=== PATIENT | male | born 1980 | race Caucasian/White ===

== ENCOUNTER 2016-03-28 19:06 | Emergency (ER) | payer OTHER ==
[~2016-03-28] VITALS: Ht 170.2 cm; Wt 106.0 kg
[~2016-03-28 19:06] MED LIST: DOLU1TAB PO; MULT-506 PO; OMEG-27 PO; TEST5GEL TOP; TRV PO
[2016-03-28 19:09] VITALS: BP 162/101; PULSE 110; TEMP 36.8; O2SAT 98; Ht 170.2 cm; Wt 106.0 kg
[2016-03-28] MEDS ORDERED: SULF800T23 PO (19:28)
[2016-03-28] MEDS ORDERED: CEPHALEXIN MONOHYDRATE 250 MG CAP PO ONE (19:30)
[2016-03-28] MEDS ORDERED: CEPHALEXIN 500MG HOME PACK 1 EA BTL PO ONE (19:30)
--- NOTE | 2016-03-28 19:32 | EMERGENCY ROOM VISIT NOTE ---
History Report prepared by Cecile: Morris Peng Under the Supervision of: Dr. Leela Spivey M.D. First contact with patient: 19:14 Chief Complaint: WOUND INFECTION Stated Complaint: INFECTION ON CHIN Nursing Triage Summary: pt noticed a red spot on chin that got bigger over the past day, thinks it is infected, states started after he shaved History of Present Illness The patient is a 36 year old male who presents to the Emergency Room with complaints of a worsening wound infection on his chin starting yesterday. The patient states that he is currently in minimal discomfort. The patient states that he was shaving yesterday and it cut his chin. He states that it has gotten red, bigger, and now it hurts. The patient additionally states that he has a staph or MRSA infection on his forehead which is improving with antibiotics. The patient denies any fever. The patient additionally sates that he is HIV positive, and his CD4 levels are in the 600s. The patient states that he is putting bacitracin on his chin. Source of History: patient Onset: yesterday Position: other (chin) Symptom Intensity: minimal Quality: other (infection) Timing: worsening Associated Symptoms: No fevers Review of Systems See HPI for pertinent positives & negatives. A total of 6 systems reviewed and were otherwise negative. Past Medical & Surgical Social History Problems: (1) HIV (human immunodeficiency virus infection) Family History Diabetes mellitus Heart disease Hypertension Social History Smoking Status: Never Smoker Alcohol Use: none Drug Use: marijuana Marital Status: single Occupation Status: employed Current/Historical Medications Scheduled Cephalexin Monohydrate (Keflex), 1 CAP PO QID Dolutegravir Sodium (Tivicay), 50 MG PO AFTERNOON Emtricitabine/Temofovir (Truvada 200-300 mg), 1 TAB PO AFTERNOON Multivitamin (Multivitamin), 1 TAB PO QAM [place]-3 Fatty Acids (Fish Oil), 1 CAP PO QAM Sulfa/Trimethoprim (Bactrim Ds 800MG/160MG), 1 TAB PO BID Testosterone (Androgel Pump), 40.5 MG TOP QAM Allergies Coded Allergies: No Known Allergies (Unverified , 03/28/16) Physical Exam Vital Signs Date Time Temp Pulse Resp B/P Pulse Ox O2 Delivery O2 Flow Rate FiO2 03/28/16 19:09 36.8 110 18 162/101 98 Room Air Physical Exam Vital signs reviewed. General: Well-appearing male, in no significant distress. HEENT: Multiple facial lesions covered in bandages. Ulcerations with minimal discharge. Crusted abrasion over the chin. No erythema, swelling, or lymphangitic streaking. No palpable fluctuance. No scleral icterus, PERRLA, neck supple. Musculoskeletal: Atraumatic, no peripheral edema. Neurologic: Patient awake alert and oriented x 3 Skin: Warm, dry, no rash Medical Decision & Procedures Medications Administered Medications (Trade) Dose Ordered Sig/Judi Route Start Time Stop Time Status Last Admin Dose Admin Cephalexin Monohydrate (Keflex 500MG Home Pack) 1 homepack NOW ONCE PO 03/28/16 19:30 03/28/16 19:31 DC 03/28/16 19:43 1 HOMEPACK Cephalexin Monohydrate (Keflex Cap) 500 mg NOW ONCE PO 03/28/16 19:30 03/28/16 19:31 DC 03/28/16 19:42 500 MG ED Course 1913: Past medical records reviewed. The patient was evaluated in room D4. A complete history and physical examination was performed. 1930: Keflex Cap 500mg PO, Keflex 500mg 1 Home pack PO 1944: Upon reevaluation, the patient appeared to have improvement of his symptoms. I discussed findings with him. He verbalized agreement of the treatment plan. He was discharged home. Medical Decision Differential diagnosis: Etiologies such as cellulitis, abscess, MRSA infection, DVT, necrotizing fasciitis, dermatitis, drug eruption, as well as others were entertained. This patient was evaluated and appeared to be in no significant distress. His examination reveals several infectious areas to the face. He appears to have an impetigo to the chin. Patient is currently on Bactrim for chronic MRSA infection. Keflex 500 mg 4 times daily for 7 days was added. Patient was given his first dose in the emergency department and discharged with a home pack. He'll follow-up with his physician this week for reevaluation and return to the ER for worsening of symptoms or any medical concerns. Impression Primary Impression: Impetigo Additional Impression: History of MRSA infection Scribe Attestation The scribe's documentation has been prepared under my direction and personally reviewed by me in its entirety. I confirm that the note above accurately reflects all work, treatment, procedures, and medical decision making performed by me. Departure Information Dispostion Home / Self-Care Prescriptions Cephalexin Monohydrate (Keflex) 500 Mg Cap 1 CAP PO QID for 7 Days, #28 CAP Prov: Leela Spivey M.D. 03/28/16 Referrals RV. Mcclendon MD (PCP) Forms HOME CARE DOCUMENTATION FORM, IMPORTANT VISIT INFORMATION, WORK / SCHOOL INSTRUCTIONS Patient Instructions A Signature Page, My [facility] Additional Instructions Diagnosis: Impetigo, history of MRSA Continue Bactrim DS as prescribed. Add Keflex 500 mg 4 times daily for 7 days. Wash with warm soap and water. Dry with a clean towel and apply antibiotic ointment. Follow-up with your physician this week for reevaluation. Return to the ER for worsening of symptoms or any medical concerns.
[2016-03-28] MEDS ORDERED: CEPH500C PO (19:34)
== END 2016-03-28 19:41 | disposition home or self-care (01) ==
LOC: C.EDB 19:07 → C.EDD 19:41
DX: L01.00 Impetigo, unspecified (principal); Z86.14 Personal history of Methicillin resistant Staphylococcus aureus infection; B20 Human immunodeficiency virus [HIV] disease; Z83.3 Family history of diabetes mellitus; Z82.49 Family history of ischemic heart disease and other diseases of the circulatory system; Z79.899 Other long term (current) drug therapy

== ENCOUNTER → 2016-05-25 | Outpatient (CLI) | payer OTHER ==
[~2016-05-25] MED LIST changes: +SULF800T23 PO
[2016-05-25 11:26] LABS: BLOOD UREA NITROGEN 16 mg/dl (7-18); BUN/CREATININE RATIO 10.1 (10-20); CALCIUM 8.3 mg/dl (8.5-10.1); CARBON DIOXIDE 26 mmol/L (21-32); CHLORIDE 104 mmol/L (98-107); GLUCOSE 147 mg/dl (70-99); POTASSIUM 3.9 mmol/L (3.5-5.1); SODIUM 139 mmol/L (136-145)
== END | disposition home or self-care (01) ==
LOC: C.LAB1850 10:03
PROVIDERS: ATTEND Internal Medicine
DX: N28.9 Disorder of kidney and ureter, unspecified (principal)

== ENCOUNTER → 2016-06-09 | Outpatient (CLI) | payer OTHER ==
[2016-06-09 14:44] LABS: BASO % 0.2 %; BASO ABS # 0.01 K/uL (0-0.2); COMPLETE YES; EOS % 4.8 %; HEMATOCRIT 44.9 % (42-52); IG% 0.2 %; LYMPH % 39.7 %; LYMPH ABS # 2.42 K/uL (1.2-3.4); MEAN CELL VOLUME 90.2 fL (80-100); MEAN CORPUSCULAR HEMOGLOBIN 31.7 pg (25-34); MEAN CORPUSCULAR HGB CONC 35.2 g/dl (32-36); MEAN PLATELET VOLUME 9.7 fL (7.4-10.4); NEUT % 47.1 %; PLATELET COUNT 277 K/uL (130-400); RED BLOOD COUNT 4.98 M/uL (4.7-6.1); WHITE BLOOD COUNT 6.09 K/uL (4.8-10.8)
[2016-06-09 14:58] LABS: ALT/SGPT 36 U/L (12-78); BLOOD UREA NITROGEN 18 mg/dl (7-18); CALCIUM 8.6 mg/dl (8.5-10.1); CARBON DIOXIDE 27 mmol/L (21-32); CHLORIDE 108 mmol/L (98-107); CHOLESTEROL 179 mg/dl (0-200); GLUCOSE 83 mg/dl (70-99); POTASSIUM 3.9 mmol/L (3.5-5.1); SODIUM 143 mmol/L (136-145)
[2016-06-09 15:07] LABS: ALB/GLOB RATIO 0.9 (0.9-2); ALKALINE PHOSPHATASE 63 U/L (45-117); AST/SGOT 22 U/L (15-37); CHOLESTEROL/HDL RATIO 5.8; HDL CHOLESTEROL 31 mg/dl; LDL CHOLESTEROL CALCULATED 81 mg/dl; TRIGLYCERIDES 334 mg/dl (0-150); VERY LOW DENSITY LIPOPROT CALC 67 mg/dl
[2016-06-09 17:47] LABS: LYME DISEASE AB IGG NEG (NEG); LYME DISEASE AB IGM NEG (NEG)
== END | disposition home or self-care (01) ==
LOC: C.LAB1850 13:14
PROVIDERS: ATTEND Internal Medicine
DX: R53.83 Other fatigue (principal); E78.5 Hyperlipidemia, unspecified

== ENCOUNTER → 2016-08-24 | Outpatient (CLI) | payer OTHER ==
[2016-08-24 14:07] LABS: BLOOD UREA NITROGEN 14 mg/dl (7-18); BUN/CREATININE RATIO 8.4 (10-20); CARBON DIOXIDE 26 mmol/L (21-32); CHLORIDE 103 mmol/L (98-107); GLUCOSE 65 mg/dl (70-99); POTASSIUM 3.7 mmol/L (3.5-5.1); SODIUM 138 mmol/L (136-145)
[2016-08-24 14:33] LABS: HEPATITIS B AB POS
[2016-08-26 17:41] LABS: HSV1 AB IGM Negative (Negative); HSV2 AB IGM Negative (Negative); LSP % CELLS ANALYZED CD4 30 % (30-61); LSP ABSOLUTE CT CD4 773 cells/uL (490-1740); LSP LYMPHOCYTES ABSOLUTE 2615 cells/uL (850-3900)
== END | disposition home or self-care (01) ==
LOC: C.LAB1850 11:08
PROVIDERS: ATTEND Internal Medicine
DX: B20 Human immunodeficiency virus [HIV] disease (principal); N18.9 Chronic kidney disease, unspecified; Z11.3 Encounter for screening for infections with a predominantly sexual mode of transmission

== ENCOUNTER → 2016-09-16 | Outpatient (CLI) | payer OTHER ==
[2016-09-16 13:20] LABS: URINE APPEARANCE CLEAR (CLEAR); URINE BILIRUBIN NEG (NEG); URINE COLOR DK YELLOW; URINE NITRITE NEG (NEG); URINE PH 5.5 (4.5-7.5); URINE SPECIFIC GRAVITY 1.029 (1.000-1.030); UROBILINOGEN NEG (NEG)
[2016-09-16 13:21] LABS: MANUAL MICROSCOPIC REQUIRED? NO; REVIEW REQ? NO
[2016-09-16 13:34] LABS: BLOOD UREA NITROGEN 16 mg/dl (7-18); BUN/CREATININE RATIO 10.9 (10-20); CALCIUM 8.7 mg/dl (8.5-10.1); CARBON DIOXIDE 29 mmol/L (21-32); CHLORIDE 107 mmol/L (98-107); GLUCOSE 106 mg/dl (70-99); POTASSIUM 3.9 mmol/L (3.5-5.1); SODIUM 142 mmol/L (136-145)
[2016-09-16 13:56] LABS: URINE PROTIEN/CREAT RATIO 0.1 (0-0.2); URINE TOTAL PROTEIN 33.1 mg/dl (0-11.9)
== END | disposition home or self-care (01) ==
LOC: C.LAB1850 11:30
PROVIDERS: ATTEND Internal Medicine Nephrology
DX: N17.9 Acute kidney failure, unspecified (principal)

== ENCOUNTER 2016-10-22 14:19 | Emergency (ER) | payer OTHER ==
[~2016-10-22] VITALS: Ht 170.2 cm; Wt 104.7 kg
[2016-10-22 14:22] VITALS: BP 138/85; Ht 170.2 cm; Wt 104.7 kg
[2016-10-22] MEDS ORDERED: IBUPROFEN 600 MG TAB PO STA (14:32)
--- NOTE | 2016-10-22 14:47 | DIAGNOSTIC IMAGING REPORT ---
LEFT ANKLE MIN 3 VIEWS ROUTINE CLINICAL HISTORY: ankle injury trauma. Pain. COMPARISON: None. DISCUSSION: Soft tissue edema over the lateral malleolus. No evidence for acute bony pathology. Cortical margins are intact. IMPRESSION: Soft tissue edema. No acute bony abnormality. The above report was generated using voice recognition software. It may contain grammatical, syntax or spelling errors. Electronically signed by: Yamil Aleman M.D. 10/22/2016 2:46 PM Dictated Date/Time: 10/22/2016 2:45 PM
--- NOTE | 2016-10-22 15:06 | EMERGENCY ROOM VISIT NOTE ---
ED Visit Note First contact with patient: 14:29 CHIEF COMPLAINT: Left Ankle injury HISTORY OF PRESENT ILLNESS: This 36-year-old male patient sustained an injury to the left ankle with a twisting, inversion motion last evening when he stepped off a curb. Complains of swelling and pain. The patient is able to bear weight on the foot but with pain. Constant pain, moderate to severe, worse with movement, weight bearing, and the dependent position. No knee pain. He denies any prior ankle injury. He has not taken anything for pain. REVIEW OF SYSTEMS: 6 system review was performed and was negative unless stated otherwise in history of present illness. PMH: No prior significant ankle injury. HIV, Kidney stones, umbilical hernia surgery SOCIAL HISTORY: Patient lives with his parents. The patient denies any tobacco or alcohol use. PHYSICAL EXAM: Vital Signs: Were reviewed Reviewed Nurse's notes. GENERAL: 36- year-old male appears in no acute distress. MENTAL STATUS: Alert, oriented, and cooperative. LEFT ANKLE The ankle is swollen and tender over the lateral aspect but the skin is intact and there is no ligamentous instability. There is no deformity. The foot and toes are warm and well-perfused. Sensation to pain and light touch is intact. EMERGENCY DEPARTMENT COURSE: The patient was evaluated. The patient's EMR medication list were reviewed. The patient was given Motrin 600 mg by mouth for pain. X-ray of the left ankle was ordered and interpreted by the radiologist and myself. DIAGNOSTICS:LEFT ANKLE MIN 3 VIEWS ROUTINE CLINICAL HISTORY: ankle injury trauma. Pain. COMPARISON: None. DISCUSSION: Soft tissue edema over the lateral malleolus. No evidence for acute bony pathology. Cortical margins are intact. IMPRESSION: Soft tissue edema. No acute bony abnormality. The above report was generated using voice recognition software. It may contain grammatical, syntax or spelling errors. Electronically signed by: Yamil Aleman M.D. 10/22/2016 2:46 PM The patient was informed of the findings. The patient was placed in a gel splint and given crutches. The patient was discharged home in stable condition. DIAGNOSIS: Sprained left Ankle DISCHARGE INSTRUCTIONS: Ice and elevation over the next 24 hours. Ibuprofen, 600 mg every 6 hours if needed for pain. Use crutches and wear gel splint until weightbearing is tolerable. If there is no improvement in 3-5 days followup with your doctor or an orthopedic surgeon . Problem List Social History Problems: (1) HIV (human immunodeficiency virus infection) Status: Chronic Current/Historical Medications Scheduled Dolutegravir Sodium (Tivicay), 50 MG PO AFTERNOON Emtricitabine/Temofovir (Truvada 200-300 mg), 1 TAB PO AFTERNOON Multivitamin (Multivitamin), 1 TAB PO QAM [place]-3 Fatty Acids (Fish Oil), 1 CAP PO QAM Testosterone (Androgel Pump), 40.5 MG TOP QAM Allergies Coded Allergies: No Known Allergies (Unverified , 03/28/16) Vital Signs Date Time Temp Pulse Resp B/P (MAP) Pulse Ox O2 Delivery O2 Flow Rate FiO2 10/22/16 14:22 36.9 97 20 138/85 97 Room Air Departure Information Referrals RV. Mcclendon MD (PCP) Patient Instructions My [facility]
[2016-10-22 15:30] VITALS: PULSE 97; TEMP 36.9; O2SAT 97
== END 2016-10-22 15:31 | disposition home or self-care (01) ==
LOC: C.EDB 14:21 → C.EDD 15:31
DX: S93.402A Sprain of unspecified ligament of left ankle, initial encounter (principal); X58.XXXA Exposure to other specified factors, initial encounter; B20 Human immunodeficiency virus [HIV] disease; Z87.442 Personal history of urinary calculi; Z79.899 Other long term (current) drug therapy; Z98.890 Other specified postprocedural states

== ENCOUNTER 2016-11-01 13:58 | Emergency (ER) | payer OTHER ==
[~2016-11-01] VITALS: Ht 170.2 cm; Wt 105.0 kg
[~2016-11-01 13:58] MED LIST changes: -SULF800T23 PO
[2016-11-01 14:00] VITALS: BP 145/96; TEMP 36.7; Ht 170.2 cm; Wt 105.0 kg
--- NOTE | 2016-11-01 14:45 | DIAGNOSTIC IMAGING REPORT ---
LEFT ANKLE MIN 3 VIEWS ROUTINE CLINICAL HISTORY: Left ankle pain, continued. Edema. Pain. Edema. COMPARISON: 10/22/2016 DISCUSSION: The bones and joint spaces appear intact. There is no evidence of fracture, dislocation or bony disease. Considerable generalized soft tissue edematous change. IMPRESSION: Soft tissue edema. No acute bony abnormality. Soft tissue edema is moderately progressive compared to the prior exam The above report was generated using voice recognition software. It may contain grammatical, syntax or spelling errors. Electronically signed by: Yamil Aleman M.D. 11/01/2016 2:43 PM Dictated Date/Time: 11/01/2016 2:42 PM
--- NOTE | 2016-11-01 14:58 | EMERGENCY ROOM VISIT NOTE ---
History First contact with patient: 14:10 Chief Complaint: ANKLE PAIN Stated Complaint: SPRAINED LEFT ANKLE History of Present Illness The patient is a 36 year old male who presents to the Emergency Room via private vehicle with complaints of "sprained left ankle". The patient states that a week and half ago, he was seen here for left ankle sprain. He states that the x-rays revealed no fracture. He is here because the swelling has worsened, and the pain is no better. He's been using ibuprofen and ice with minimal relief. He has been wearing the splint. He states that he has not been completely nonweightbearing. He rates the pain as a 6/10. He denies any fevers or chills. Review of Systems A complete 6-point Review of Systems was discussed with the patient, with pertinent positives and negatives listed in the History of Present Illness. All remaining Review of Systems questions can be considered negative unless otherwise specified. Past Medical/Surgical History Social History Problems: (1) HIV (human immunodeficiency virus infection) Family History Diabetes mellitus Heart disease Hypertension Social History Smoking Status: Never Smoker Alcohol Use: none Drug Use: marijuana Marital Status: single Occupation Status: employed Current/Historical Medications Scheduled Dolutegravir Sodium (Tivicay), 50 MG PO AFTERNOON Emtricitabine/Temofovir (Truvada 200-300 mg), 1 TAB PO AFTERNOON Multivitamin (Multivitamin), 1 TAB PO QAM [place]-3 Fatty Acids (Fish Oil), 1 CAP PO QAM Testosterone (Androgel Pump), 40.5 MG TOP QAM Physical Exam Vital Signs Date Time Temp Pulse Resp B/P (MAP) Pulse Ox O2 Delivery O2 Flow Rate FiO2 11/01/16 15:05 95 18 97 11/01/16 14:00 36.7 100 20 145/96 97 Room Air Physical Exam VITAL SIGNS - Vital signs and nursing notes were reviewed. Afebrile, hypertensive at 145/96, tachycardic, and is saturating well on room air 97%. GENERAL -36-year-old male appearing his stated age who is in no acute distress. Communicates well with provider and answers questions appropriately. SKIN - Without rashes. The left ankle is edematous, erythema or abnormal warmth. HEAD - NC/AT. EXTREMITIES - No clubbing or peripheral cyanosis. No pretibial edema present. There is edema noted around the left ankle that is generalized. There is no point tenderness over the bones. There is tenderness to palpation overlying the anterior talofibular ligament region. +5/5 strength noted in UE/LE bilaterally. He is neurovascularly intact in his region. Medical Decision & Procedures ER Provider Diagnostic Interpretation: LEFT ANKLE MIN 3 VIEWS ROUTINE CLINICAL HISTORY: Left ankle pain, continued. Edema. Pain. Edema. COMPARISON: 10/22/2016 DISCUSSION: The bones and joint spaces appear intact. There is no evidence of fracture, dislocation or bony disease. Considerable generalized soft tissue edematous change. IMPRESSION: Soft tissue edema. No acute bony abnormality. Soft tissue edema is moderately progressive compared to the prior exam The above report was generated using voice recognition software. It may contain grammatical, syntax or spelling errors. Electronically signed by: Yamil Aleman M.D. 11/01/2016 2:43 PM Dictated Date/Time: 11/01/2016 2:42 PM Medical Decision Patient was seen and evaluated as above. Previous visit was extensively reviewed. He was seen here a week and a half ago for the same complaint. X- rays were performed, and he was recommended follow-up in the outpatient setting. Patient has this point and will follow-up. He is here for further evaluation and management. Repeat radiographs were obtained, read by myself and the radiologist with results as above. No acute fracture. There is soft tissue edema. I suspect he has an ankle sprain, that because he has not been weightbearing has gotten worse. At this point I will recommend nonweightbearing with crutches. He has, and wearing the splint as much as possible. He is to follow-up with orthopedics. He was educated upon worrisome symptoms which to return, educated upon conservative management, had questions prior to discharge, and was discharged home in good condition. In the evaluation and treatment of this patient, the following differential diagnoses were considered: Ankle Fracture, Ankle Sprain, Distal Fibula Fracture , Distal Tibia Fracture, Foot Fracture, [place] Fracture. Impression Primary Impression: Left ankle pain Departure Information Dispostion Home / Self-Care Condition GOOD Referrals RV. Mcclendon MD (PCP) Jose Melvin MD Patient Instructions My [facility] Additional Instructions You have been treated in the Emergency Department for a left Ankle injury. You have received pain medicine in the emergency department which impairs your ability to operate a vehicle. It is illegal for you to drive after receiving these medicines. For pain control, you can use the following [id number] medicines (if >12 yo): - Regular strength (325mg/tab) Tylenol (acetaminophen) 2 tabs every 4-6 hours as needed. Do not exceed 12 tablets in a 24 hour period. Avoid taking more than 3 grams (3000 mg) of Tylenol per day. This includes any other sources of acetaminophen you may take on a regular basis. - Regular strength (200 mg/tab) Advil (ibuprofen) 1-2 tabs every 4-6 hours as needed. Do not exceed a dose of 3200 mg per day. If this is a recent injury (<24 hrs), ice can be applied to the area of pain for the first 3 days to help decrease pain and inflammation. You have been provided the number for an Orthopaedic Surgeon. You should call this number as soon as possible to establish a follow-up visit from today's Emergency Department visit. Keep the ankle brace/splint in place until cleared by Orthopedics. Use the crutches you have been provided to keep ALL weight off of the ankle until weight bearing is tolerable. Return to the Emergency Department if your current symptoms worsen despite treatment course outlined above, or if you develop any of the following symptoms : intractable pain despite aforementioned treatment course or new onset of numbness or tingling of the foot. Please return to the emergency department with any new/concerning symptoms.
[2016-11-01 15:05] VITALS: PULSE 95; O2SAT 97
== END 2016-11-01 15:07 | disposition home or self-care (01) ==
LOC: C.EDB 13:59 → C.EDD 15:07
DX: M25.572 Pain in left ankle and joints of left foot (principal); Z21 Asymptomatic human immunodeficiency virus [HIV] infection status; Z83.3 Family history of diabetes mellitus; Z82.49 Family history of ischemic heart disease and other diseases of the circulatory system

== ENCOUNTER → 2017-03-04 | Outpatient (CLI) | payer OTHER ==
[2017-03-04 10:41] LABS: BASO % 0.4 %; BASO ABS # 0.03 K/uL (0-0.2); COMPLETE YES; HEMATOCRIT 41.4 % (42-52); IG% 0.1 %; LYMPH % 38.7 %; LYMPH ABS # 2.64 K/uL (1.2-3.4); MEAN CORPUSCULAR HEMOGLOBIN 29.7 pg (25-34); MEAN CORPUSCULAR HGB CONC 33.3 g/dl (32-36); MEAN PLATELET VOLUME 9.3 fL (7.4-10.4); MONO % 9.5 %; NEUT % 47.3 %; PLATELET COUNT 310 K/uL (130-400); RED BLOOD COUNT 4.65 M/uL (4.7-6.1); WHITE BLOOD COUNT 6.82 K/uL (4.8-10.8)
[2017-03-04 11:09] LABS: ALT/SGPT 41 U/L (12-78); BLOOD UREA NITROGEN 15 mg/dl (7-18); BUN/CREATININE RATIO 9.5 (10-20); CALCIUM 8.3 mg/dl (8.5-10.1); CARBON DIOXIDE 26 mmol/L (21-32); CHLORIDE 104 mmol/L (98-107); CREATININE 1.55 mg/dl (0.60-1.40); GLUCOSE 109 mg/dl (70-99); POTASSIUM 3.5 mmol/L (3.5-5.1); SODIUM 136 mmol/L (136-145)
[2017-03-04 11:12] LABS: ALB/GLOB RATIO 0.8 (0.9-2); ALKALINE PHOSPHATASE 71 U/L (45-117); AST/SGOT 26 U/L (15-37); PHOSPHORUS 3.3 mg/dl (2.5-4.9)
== END | disposition home or self-care (01) ==
LOC: C.LAB1850 10:03
PROVIDERS: ATTEND Internal Medicine Infectious Disease
DX: N17.9 Acute kidney failure, unspecified (principal); B20 Human immunodeficiency virus [HIV] disease

== ENCOUNTER → 2017-04-11 | Outpatient (CLI) | payer OTHER ==
[2017-04-11 09:55] LABS: BASO % 0.3 %; BASO ABS # 0.02 K/uL (0-0.2); EOS % 4.5 %; EOS ABS # 0.33 K/uL (0-0.5); HEMATOCRIT 41.3 % (42-52); IG# 0.01 K/uL (0.00-0.02); LYMPH % 35.5 %; LYMPH ABS # 2.62 K/uL (1.2-3.4); MEAN CELL VOLUME 87.7 fL (80-100); MEAN CORPUSCULAR HEMOGLOBIN 29.7 pg (25-34); MEAN CORPUSCULAR HGB CONC 33.9 g/dl (32-36); MEAN PLATELET VOLUME 9.4 fL (7.4-10.4); MONO % 8.5 %; MONO ABS # 0.63 K/uL (0.11-0.59); NEUT % 51.1 %; NEUT ABS # 3.76 K/uL (1.4-6.5); PLATELET COUNT 281 K/uL (130-400); RED CELL DISTRIBUTION WIDTH CV 13.8 % (11.5-14.5); RED CELL DISTRIBUTION WIDTH SD 44.2 fL (36.4-46.3); WHITE BLOOD COUNT 7.37 K/uL (4.8-10.8)
[2017-04-11 10:31] LABS: ALBUMIN 3.3 gm/dl (3.4-5.0); BLOOD UREA NITROGEN 16 mg/dl (7-18); CARBON DIOXIDE 26 mmol/L (21-32); CREATININE 1.33 mg/dl (0.60-1.40); GLUCOSE 92 mg/dl (70-99); PHOSPHORUS 4.5 mg/dl (2.5-4.9); POTASSIUM 3.5 mmol/L (3.5-5.1); SODIUM 139 mmol/L (136-145)
== END | disposition home or self-care (01) ==
LOC: C.LAB1850 08:54
PROVIDERS: ATTEND Internal Medicine Nephrology
DX: N18.9 Chronic kidney disease, unspecified (principal)

== ENCOUNTER → 2017-04-20 | Outpatient (CLI) | payer OTHER ==
--- NOTE | 2017-04-20 10:58 | DIAGNOSTIC IMAGING REPORT ---
RETROPERITONEAL COMPLETE CLINICAL HISTORY: Hydronephrosis of left kidney. COMPARISON STUDY: CT of the abdomen and pelvis September 01, 2014 and renal ultrasound September 24, 2014. 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 There is no hydronephrosis within the right or left renal moieties. No calculi are identified although sensitivity is diminished given suboptimal penetration. The bladder is collapsed. Bladder wall thickening is noted. Prostate is borderline enlarged. Both ureteral jets were identified. IMPRESSION: 1. Horseshoe kidney. No hydronephrosis. 2. Bladder wall thickening which is accentuated given a collapsed bladder. Electronically signed by: Ramses Metcalf M.D. 04/20/2017 10:56 AM Dictated Date/Time: 04/20/2017 10:53 AM
== END | disposition home or self-care (01) ==
LOC: C.ULTR 10:12
PROVIDERS: ATTEND Internal Medicine
DX: N13.30 Unspecified hydronephrosis (principal)

== ENCOUNTER → 2017-10-14 | Outpatient (CLI) | payer OTHER ==
[2017-10-14 12:50] LABS: ALBUMIN 3.4 gm/dl (3.4-5.0); BLOOD UREA NITROGEN 11 mg/dl (7-18); CALCIUM 8.6 mg/dl (8.5-10.1); CARBON DIOXIDE 24 mmol/L (21-32); CREATININE 1.42 mg/dl (0.60-1.40); GLUCOSE 131 mg/dl (70-99); PHOSPHORUS 3.5 mg/dl (2.5-4.9); POTASSIUM 3.8 mmol/L (3.5-5.1); SODIUM 139 mmol/L (136-145)
== END | disposition home or self-care (01) ==
LOC: C.LAB1850 11:09
PROVIDERS: ATTEND Internal Medicine Infectious Disease
DX: B20 Human immunodeficiency virus [HIV] disease (principal); N18.9 Chronic kidney disease, unspecified

== ENCOUNTER 2024-12-19 05:27 | Observation (INO) ==
[2024-12-19 06:03] LABS: Hematocrit (blood only) 54.2 % (42.0-52.0); Hemoglobin 18.6 g/dl (14.0-18.0); Immature Granulocytes # (auto) 0.02 K/uL (0.01-0.20); Immature Granulocytes % (auto) 0.2 %; Mean Corpuscular Hemoglobin 30.7 pg (25.0-34.0); Mean Corpuscular Volume 89.6 fL (80.0-100.0); Platelet Count 305 K/uL (130-400); RDW Standard Deviation 40.8 fL (36.4-46.3); Red Blood Count 6.05 M/uL (4.70-6.10); White Blood Count 10.51 K/ul (4.8-10.8)
--- NOTE | 2024-12-19 06:03 | Emergency Department Note ---
Impression & Plan Nausea & vomiting, DARLING (acute kidney injury), Acute dehydration, Esophagitis, Gastritis ED Provider Note NAME: JUAN DAVID CA AGE: 44 SEX: M : 1980 ARRIVES VIA: Walk-In INFORMANT: Patient, ED PROVIDER(S): Tera Leigh DO CHIEF COMPLAINT: Vomiting HPI: The patient is a 44-year-old male who presented to the emergency department for an evaluation of vomiting. The patient describes episodes of vomiting which began yesterday. The patient states he has been unable to eat or drink. He denies having any diarrhea. He denies having any abdominal pain. He has noticed some heartburn and pain into his upper chest. The patient denies having any difficulty breathing. He has had a slight cough. The patient is not been seen by her provider but came to the emergency department immediately this morning because symptoms did not improve. ROS: See above HPI for pertinent positives & negatives. A total of 10 systems reviewed and were otherwise negative. PAST MEDICAL HISTORY: See Below PAST SURGICAL HISTORY: See Below FAMILY HISTORY: See Below SOCIAL HISTORY: See Below HOME MEDICATIONS: See Below ALLERGIES: See Below VITALS: See Below PHYSICAL EXAMINATION: GENERAL: Patient is awake alert in no acute distress patient is resting comfortably and showing no signs of anxiety EYES: The conjunctivae are clear. The pupils are round and reactive. EARS, NOSE, MOUTH AND THROAT: The nose is without any evidence of any deformity. NECK: The neck is nontender and supple. RESPIRATORY: Diminished breath sounds are noted in the right lung field. There is no tachypnea or conversational dyspnea. CARDIOVASCULAR: Regular rate and rhythm noted there no murmurs rubs or gallops normal S1 normal S2. GASTROINTESTINAL: The abdomen is soft. Abdomen is nontender. MUSCULOSKELETAL/EXTREMITIES: There is no evidence of gross deformity full range of motion is noted in the hips and shoulders. SKIN: There is no obvious evidence of any rash. There are no petechiae, pallor or cyanosis noted. NEUROLOGIC: Patient is awake alert and oriented x3 strength is symmetric patellar reflexes are 2+ bilaterally MEDICAL DECISION MAKING: The patient is a 44-year-old male who presented to the emergency department for an evaluation of nausea vomiting. The patient had reassuring vital signs. Abdominal exam was not consistent with acute surgical abdomen. Given the patient's symptoms he was treated with IV fluids and IV antiemetics. On reevaluation he was significantly proved. I discussed the patient's laboratory results with him. X-rays did not show any acute process. Laboratory studies were reassuring but he did have a slight elevation in his creatinine compared to baseline. I think this is secondary to dehydration. His hemoglobin was found to be elevated which again I think is due to dehydration. He was encouraged to continue all medications as prescribed. He was encouraged to drink plenty clear liquids including Pedialyte and Gatorade. He was also encouraged to follow-up with his family doctor for reevaluation but return immediately if symptoms change worsen or the need arises. Prior to discharge the patient had continued vomiting. The patient was having dark emesis. I was concerned this could represent something else underlying. For this reason further imaging studies were obtained. Given the ongoing nausea and vomiting I do not feel the patient would be a good candidate for outpatient management. For this reason I discussed his condition with the on-call [facility] hospitalist. Triage Nursing notes reviewed. Prior medical records reviewed Vital Signs: reviewed and remarkable for no significant abnormalities Differential diagnosis: Gastroenteritis, food borne illness, infections, appendicitis, diverticulitis, inflammatory bowel disease, obstruction, GI bleed, biliary pathology, volvulus, as well as other pathologies. ER treatment provided: See below Diagnostics interpreted by me: ECG: EKG was obtained in the emergency department. My interpretation is normal sinus rhythm at 74 bpm. There is no ectopy. There is no acute ST segment abnormalities noted. He is this was compared to a tracing from October 10, 2019. No changes were noted Cardiac Monitoring: An order was placed for continuous cardiac monitoring. The monitor shows a rate of 71 bpm with sinus rhythm. Laboratory studies: As stated above and show below. Imaging studies: See below. Radiographic imaging was reviewed by myself Consultation(s): I discussed this case with Dr Pritchett, who was psychologist [employer] for [facility] [place] [facility] Past Med/Surg History Problem List (Updated 12/19/24 @ 12:04 by Tera Leigh DO) Gastritis (Acute) Esophagitis (Acute) Acute dehydration (Acute) DARLING (acute kidney injury) (Acute) Nausea & vomiting (Acute) Tiredness Vitamin B12 deficiency Hypertriglyceridemia Hyperglycemia Vitamin D deficiency Nephrolithiasis (Acute) Low testosterone (Acute) Low back pain (Acute) Inhibited sexual excitement (Acute) Hypertension, benign (Chronic) Hyperparathyroidism (Acute) Hyperlipidemia (Acute) Hydronephrosis of left kidney (Acute) Horseshoe kidney (Acute) Chronic kidney disease, stage III (moderate) (Acute) Acne (Acute) Human immunodeficiency virus (HIV) disease (Chronic) Lower extremity edema (Acute) Encounter for health maintenance examination GERD (gastroesophageal reflux disease) Chronic diarrhea Obesity Medical History HIV infection, symptomatic CKD (chronic kidney disease) Kidney disease Secondary hyperparathyroidism GERD with esophagitis Infectious colitis Symptoms consistent with irritable bowel syndrome Diarrhea Kidney stones hx Acid reflux High blood pressure Methicillin resistant Staphylococcus aureus infection hx of Vitamin D insufficiency hx of History of MRSA infection HIV (human immunodeficiency virus infection) Surgical History History of lithotripsy History of tooth extraction 2 teeth removed History of umbilical hernia repair History of inguinal hernia repair Hx of wisdom tooth extraction Family History Brother Diabetes Coronary heart disease Anxiety disorder Father Coronary heart disease Diabetes Kidney disease Melanoma Mother Diabetes Migraines Family/Other Breast cancer Denies family history of Ovarian cancer Prostate cancer Crohn's disease Myocardial infarction Colorectal cancer Ulcerative colitis Social History Smoking Status: Never smoker Second Hand Exposure: No; Do You Dip or Chew Tobacco: No; Hx Alcohol Use: No Hx Substance Use: Yes Substance Use Type Other:: marijuana occasionally Preferred Language: Belarusian Communication Ability: Effective Visual Impairment: No Limitations Hearing Ability: Normal Legal Recovery Specialist Required: No Beliefs That Will Affect Care: None marital status: Single Current Living Situation: Family Current Living Situation Comment: PARENTS current occupational status: student Feels Safe at Home: Yes Childhood Exposure to Second-Hand Smoke: Yes (brother) Dental Care, Regularly: Yes Physical Activity Frequency: Does not Exercise Seatbelt Use: always Sunscreen Use: No Assistive Devices: Glasses Allergies Allergies Allergy/AdvReac Type Severity Reaction Status Date / Time lisinopril Allergy Intermediate Rash, "big Verified 11/07/24 13:38 acne" Home Meds Home Medications Medication Instructions Recorded Confirmed multivitamin 1 tab PO QAM 05/08/18 11/07/24 bictegravir 50 mg-emtricitabine 1 tab PO PM 12/14/22 11/07/24 200 mg-tenofovir alafenam 25 mg tablet (Biktarvy) Previous Rx's Medication Instructions Recorded olmesartan 20 mg tablet 20 mg PO DAILY #90 tabs 05/02/24 cholecalciferol (vitamin D3) 50 50 mcg PO DAILY #90 caps 06/18/24 mcg (2,000 unit) capsule mecobalamin (vitamin B12) 1,000 1,000 mcg PO DAILY #90 tabs 06/18/24 mcg chewable tablet atorvastatin 20 mg tablet 20 mg PO QPM #30 tabs 11/07/24 mupirocin 2 % topical ointment 1 applic topical TID #22 grams 11/07/24 ondansetron HCl 4 mg tablet 4 mg PO Q8H PRN nausea and 12/19/24 vomiting #20 tabs Results & Data (ED) Vital Signs Vital Signs - 24 hr 12/19/24 05:30 12/19/24 05:45 12/19/24 06:12 Temperature 36.4 C L Temperature Source Temporal Artery Scan Pulse Rate 85 81 Pulse Rate [Apical] 80 Pulse Rhythm Regular Pulse Strength Normal Respiratory Rate 18 18 Respiratory Effort / Characteristics Non-Labored Spontaneous Non-Labored Respiratory Depth Normal Normal Respiratory Pattern Regular Blood Pressure 167/119 H Blood Pressure [Left Arm] 164/114 H Blood Pressure Mean 135 Blood Pressure Mean [Left Arm] 130 Blood Pressure Position Sitting Blood Pressure Position [Left Arm] Pulse Oximetry 95 93 Oxygen Delivery Method Room Air Room Air Sepsis Recent Fever Within 48 Hours No Sepsis New/Unexplained Change in Mental Status N/A Sepsis Action Taken by Nursing No Action Required 12/19/24 06:12 12/19/24 06:33 12/19/24 08:00 Temperature Temperature Source Pulse Rate Pulse Rate [Apical] 71 73 Pulse Rhythm Regular Pulse Strength Respiratory Rate 13 23 Respiratory Effort / Characteristics Non-Labored Non-Labored Spontaneous Respiratory Depth Normal Normal Respiratory Pattern Blood Pressure Blood Pressure [Left Arm] 126/68 172/115 H Blood Pressure Mean Blood Pressure Mean [Left Arm] 87 134 Blood Pressure Position Blood Pressure Position [Left Arm] Semi-fowlers Pulse Oximetry 97 94 Oxygen Delivery Method Room Air Room Air Sepsis Recent Fever Within 48 Hours Sepsis New/Unexplained Change in Mental Status Sepsis Action Taken by Nursing 12/19/24 10:33 12/19/24 10:44 Temperature Temperature Source Pulse Rate 66 Pulse Rate [Apical] 76 Pulse Rhythm Pulse Strength Respiratory Rate 16 Respiratory Effort / Characteristics Non-Labored Spontaneous Respiratory Depth Normal Respiratory Pattern Blood Pressure Blood Pressure [Left Arm] 178/121 H Blood Pressure Mean Blood Pressure Mean [Left Arm] 140 Blood Pressure Position Blood Pressure Position [Left Arm] Semi-fowlers Pulse Oximetry 97 Oxygen Delivery Method Room Air Sepsis Recent Fever Within 48 Hours Sepsis New/Unexplained Change in Mental Status Sepsis Action Taken by Long Term Medications Current Medication List: was personally reviewed by me Laboratory Data Attestation: I reviewed the patient's lab results. 12/19/24 05:42 12/19/24 05:42 Lab Results 12/19/24 12/19/24 12/19/24 Range/Units 05:42 06:08 11:03 WBC 10.51 (4.8-10.8) K/ul RBC 6.05 (4.70-6.10) M/uL Hgb 18.6 H (14.0-18.0) g/dl Hct 54.2 H (42.0-52.0) % MCV 89.6 (80.0-100.0) fL MCH 30.7 (25.0-34.0) pg MCHC 34.3 (32.0-36.0) g/dL RDW Std Deviation 40.8 (36.4-46.3) fL RDW Coeff of Maritza 12.5 (11.5-14.5) % Plt Count 305 (130-400) K/uL MPV 8.9 L (9.4-12.4) fL Immature Gran % (Auto) 0.2 % Neut % (Auto) 77.0 % Lymph % (Auto) 15.0 % [place] % (Auto) 6.7 % Eos % (Auto) 0.8 % Baso % (Auto) 0.3 % Neut # (Auto) 8.10 H (1.40-6.50) K/uL Lymph # (Auto) 1.58 (1.20-3.40) K/uL [place] # (Auto) 0.70 H (0.11-0.59) K/uL Eos # (Auto) 0.08 (0.00-0.50) K/uL Baso # (Auto) 0.03 (0.00-0.20) K/uL Immature Gran # (Auto) 0.02 (0.01-0.20) K/uL Sodium 139 (136-145) mmol/L Potassium 4.0 (3.5-5.1) mmol/L Chloride 99 (98-107) mmol/L Carbon Dioxide 34 H (21-32) mmol/L Anion Gap 6 (3-11) BUN 15 (6-23) mg/dl Creatinine 1.47 H (0.6-1.4) mg/dl Est Cr Clr Drug Dosing 77.5 ml/min eGFR 60.70 BUN/Creatinine Ratio 10.2 (10-20) Glucose 156 H (70-99(Fasting)) mg/dl Calcium 9.9 (8.6-10.3) mg/dl Total Bilirubin 0.8 (0.2-1.0) mg/dl AST 15 (13-39) U/L ALT 18 (7-52) U/L Alkaline Phosphatase 75 (34-104) U/L Troponin I High Sens 4.5 3.7 (0-20) pg/ml Total Protein 8.5 H (6.0-8.3) gm/dl Albumin 4.7 (3.4-5.0) gm/dl Globulin 3.8 (2.5-4.0) gm/dl Albumin/Globulin Ratio 1.2 (0.9-2) Lipase 29 (11-82) U/L Urine Color Dark Yellow Urine Appearance Clear (Clear) Urine pH 6.0 (4.5-7.5) Ur Specific [place] 1.026 (1.000-1.030) Urine Protein 1+ H (Negative) Urine Glucose (UA) Negative (Negative) Urine Ketones Trace H (Negative) Urine Blood Negative (Negative) Urine Nitrite Negative (Negative) Urine Bilirubin Negative (Negative) Urine Urobilinogen Negative (Negative) Ur Leukocyte Esterase Negative (Negative) Urine WBC (Auto) 0-5 (0-5) /hpf Urine RBC (Auto) 0-2 (0-2) /hpf U Hyaline Cast (Auto) 0-2 (0-2) /lpf U Epithel Cells (Auto) 0-2 (0-2) /hpf Urine Bacteria (Auto) None Seen (None Seen) Urine Comment SARS-CoV-2 (PCR) NEGATIVE (Negative) Influenza Type A (PCR) Negative (Neg) Influenza Type B (PCR) Negative (Neg) RSV (RT-PCR) Negative (Neg) Administered Medications Discontinued Medications Sodium Chloride (Nss) 1,000 mls @ 999 mls/hr IV .Q1H1M STA Stop: 12/19/24 07:02 Last Infusion: 12/19/24 08:50 Dose: Infused Documented By: Admin: 12/19/24 06:09 Dose: 999 mls/hr Documented By: SYLVIA Sodium Chloride (Nss) 1,000 mls @ 999 mls/hr IV .Q1H1M ONE Stop: 12/19/24 09:04 Last Infusion: 12/19/24 11:04 Dose: Infused Documented By: Admin: 12/19/24 08:11 Dose: 999 mls/hr Documented By: DUARTE Promethazine HCl (Phenergan) 12.5 mg in 50.5 mls @ 202 mls/hr IV NOW STA Stop: 12/19/24 10:16 Last Infusion: 12/19/24 11:04 Dose: Infused Documented By: Admin: 12/19/24 10:34 Dose: 202 mls/hr Documented By: DUARTE Pantoprazole Sodium (Protonix) 40 mg in 10 mls @ 5 mls/min IV NOW ONE Stop: 12/19/24 11:14 Last Admin: 12/19/24 11:39 Dose: 5 mls/min Documented By: DUARTE Ioversol (Optiray 320 125ml) 119 ml IV ONCE ONE Stop: 12/19/24 10:18 Last Admin: 12/19/24 10:17 Dose: 119 ml Documented By: JOSSY Ondansetron HCl (Ondansetron Inj 2 Mg/Ml 2 Ml Vial) 4 mg IV NOW STA Stop: 12/19/24 06:03 Last Admin: 12/19/24 06:09 Dose: 4 mg Documented By: SYLVIA Ondansetron HCl (Ondansetron Inj 2 Mg/Ml 2 Ml Vial) 4 mg IV NOW STA Stop: 12/19/24 08:05 Last Admin: 12/19/24 08:11 Dose: 4 mg Documented By: DUARTE Imaging Data Attestation: I personally reviewed and interpreted this imaging study as follows: My Impression: 1 view chest x-ray was obtained in the emergency department. My interpretation is no free air or definite infiltrate, final report below. Radiologist's Impression: Chest X-Ray 12/19/24 06:02 EXAM: XR chest 1V portable CLINICAL HISTORY: Chest pain, nonspecific TECHNIQUE: An X-ray image of the chest is obtained in AP projection. COMPARISON: None. FINDINGS: The lungs are clear and well-expanded with no pulmonary infiltrate or pleural effusion. The cardiomediastinal silhouette is within normal limits. No acute osseous abnormality. Raised left dome of diaphragm. IMPRESSION: 1. No acute cardiopulmonary disease. Electronically signed by Quinton Willson 12-19-2024 07:35 AM KUB X-Ray 12/19/24 06:07 EXAM: XR KUB/Abdomen 1 view CLINICAL HISTORY: vomiting TECHNIQUE: X-ray images of the abdomen were obtained in supine and upright positions. 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 No evidence of bowel obstruction or distention. Soft Tissues: Soft tissues of the abdomen appear normal without evidence of masses or calcifications. Liver, spleen, and kidneys are of normal size and position. IMPRESSION: Normal abdominal X-ray. No acute abnormalities identified. No other new interval abnormality since prior study. Electronically signed by Quinton Willson 12-19-2024 07:37 AM Abdomen/Pelvis CT 12/19/24 10:01 CT SCAN OF THE ABDOMEN AND PELVIS WITH IV CONTRAST CLINICAL HISTORY: Nausea and vomiting. COMPARISON STUDY: CT of the abdomen and pelvis April 22, 2021. TECHNIQUE: Following the IV administration of 119 cc of Optiray 320, CT scan of the abdomen and pelvis is performed from the lung bases to the proximal femora. Images are reviewed in the axial, sagittal, and coronal planes. IV contrast was administered without complication. A dose lowering technique was utilized adhering to the principles of ALARA. FINDINGS: Moderate circumferential wall thickening of the distal esophagus is partially imaged. There is mucosal hyperemia and trace paraesophageal stranding and fluid. The remainder of the esophagus is depicted on the chest CT which will be reported separately. No pneumatosis, free air or portal venous gas is present. Liver, spleen, adrenal glands and pancreas are unremarkable. Incidental note is again made of a horseshoe kidney. There is no hydronephrosis. There is no biliary or pancreatic ductal dilatation. There is circumferential wall thickening of the gastric antrum which appears edematous. There is mild adjacent stranding is no extraluminal gas. There are no fluid collections. There is no evidence for a bowel obstruction. There is colonic diverticulosis. Prostate is enlarged, measuring 5.2 cm in transverse diameter. There is mild rectal wall thickening. Prominent perirectal fat is again noted. The extent of colorectal wall thickening has decreased since CT of April 22, 2021. IMPRESSION: 1. Distal esophageal wall thickening with trace adjacent fluid and stranding. This favors esophagitis. Edematous, thickened gastric antrum with mild adjacent inflammation. This favors gastritis/peptic ulcer disease. No extraluminal gas. No fluid collections. Correlation with endoscopy is recommended. 2. Rectal wall thickening, similar to CT of February 19, 2022. This is likely chronic. Interval decrease in extent of colorectal wall thickening since prior exam. The findings raise the possibility of a chronic inflammatory process such as ulcerative colitis. ACT 112: Negative or not required by law. Electronically signed by: Ramses Metcalf M.D. 12/19/2024 11:12 AM Chest CTA 12/19/24 10:01 CT angio chest PE protocol HISTORY: 44 years-old Male with PE. Acute shortness of breath TECHNIQUE: Multiple CTA images of the chest were obtained after the intravenous administration of 119 ml Optiray. Coronal and sagittal MIPS were obtained from the axial data set and were submitted for review. All measurements were obtained according to NASCET criteria. A dose lowering technique was utilized adhering to the principles of ALARA. COMPARISON: CT abdomen and pelvis of same day, chest CT 05/19/2013 FINDINGS: CTA: The heart is normal in size. No pericardial effusion. No thoracic aortic aneurysm or dissection. There is patency of the image great vessels. No pulmonary emboli are identified. CT CHEST: No dominant thyroid nodule is seen. No pathologically adenopathy by CT size criteria. Mild subsegmental left basilar atelectasis. There is no pneumothorax, pleural effusion or focal airspace consolidation. Mid to distal esophageal wall thickening with adjacent inflammatory stranding and a small hiatal hernia. CT abdomen and pelvis dictated separately. Mild gynecomastia. The osseous structures appear intact. IMPRESSION: 1. No pulmonary emboli. 2. Small hiatal hernia with moderate mid to distal esophageal wall thickening suspicious for esophagitis. Correlation with endoscopy recommended in order to exclude a mucosal lesion. ACT 112: Negative or not required by law. The above report was generated using voice recognition software. It may contain grammatical, syntax or spelling errors. Electronically signed by: Iraj Castillo M.D. 12/19/2024 11:[address] 12/19/24 10:01 CT SCAN OF THE BRAIN WITHOUT IV CONTRAST CLINICAL HISTORY: Nausea and vomiting. COMPARISON STUDY: None. TECHNIQUE: Unenhanced axial CT scan of the brain was performed from the vertex to the skull base. A dose lowering technique was utilized adhering to the principles of ALARA. CT DOSE: 3298.72 mGy.cm FINDINGS: Brain parenchyma: No acute intracranial hemorrhage, midline shift or mass effect is present. Pichardo-white matter differentiation is preserved. There are no extra- axial fluid collections. There are no findings to suggest acute dural sinus thrombosis or acute territorial infarct. Ventricles, sulci, cisterns: There is no hydrocephalus. The basal cisterns are patent. Calvarium: Unremarkable. Sinuses and mastoids: There are trace secretions within the right sphenoid sinus. The mastoid air cells are well pneumatized. Orbits: The bony orbits are grossly intact. IMPRESSION: No acute intracranial findings. ACT 112: Negative or not required by law. Electronically signed by: Ramses Metcalf M.D. 12/19/2024 10:35 AM Discharge Plan Visit Data Chief Complaint: Vomiting Stated Complaint: VOMIT ED Provider: Tera Leigh Discharge Problem: Nausea & vomiting, DARLING (acute kidney injury), Acute dehydration, Esophagitis, Gastritis Patient Disposition: Being Evaluated by Hospitalist Condition: Good Discharge Instructions Krames/Other Patient Handouts: ED Vomiting (Adult) Activity Restrictions/Additional Instructions: Call your family doctor to schedule a follow-up appointment. Continue to drink plenty of clear liquids including Pedialyte and Gatorade. Discussed possibility with your family doctor that you may require further workup or possibly referral to a specialist if symptoms do not improve in usual fashion. Return immediately if symptoms change worsen or the need arises. Forms Stand Alone Forms: My [facility], Important Visit Information Prescriptions Prescriptions: New ondansetron HCl 4 mg tablet 4 mg PO Q8H PRN (Reason: nausea and vomiting) Qty: 20 0RF No Action mecobalamin (vitamin B12) 1,000 mcg tablet,chewable 1,000 mcg PO DAILY Qty: 90 3RF cholecalciferol (vitamin D3) 50 mcg (2,000 unit) capsule 50 mcg PO DAILY Qty: 90 3RF Rx Instructions: with heaviest meal of the day olmesartan 20 mg tablet 20 mg PO DAILY Qty: 90 3RF atorvastatin 20 mg tablet 20 mg PO QPM Qty: 30 5RF mupirocin 2 % ointment 1 applic topical TID Qty: 22 5RF multivitamin Tablet 1 tab PO QAM Rx Instructions: PER PT "HAVEN'T TAKE FOR A COUPLE DAYS". Biktarvy 50-200-25 mg tablet 1 tab PO PM Referrals Referrals: Marie Abraham MD [Primary Care Provider] -
[2024-12-19 06:09] LABS: Appearance Urine Clear (Clear); Bacteria Urine Automated None Seen (None Seen); Cast Urine Automated 0-2 /lpf (0-2); Epithelial Cell Urine Auto 0-2 /hpf (0-2); Glucose Urine UA Negative (Negative); RBC Urine Automated 0-2 /hpf (0-2); WBC Urine Automated 0-5 /hpf (0-5)
[2024-12-19] MEDS: ONDANSETRON INJ 2 MG/ML 2 ML VIAL IV STA ×2 (06:09→08:11)
[2024-12-19] MEDS: SODIUM CHLORIDE 0.9% 1,000 ML IV STA (06:09)
[2024-12-19 06:24] LABS: Alanine Aminotransferase 18.0 U/L (7-52); Albumin Globulin Ratio 1.2 (0.9-2); Albumin Level 4.7 gm/dl (3.4-5.0); Alkaline Phosphatase 75.0 U/L (34-104); Anion Gap 6.0 (3-11); Bilirubin,Total 0.8 mg/dl (0.2-1.0); Blood Urea Nitrogen 15.0 mg/dl (6-23); Calcium 9.9 mg/dl (8.6-10.3); Carbon Dioxide 34.0 mmol/L (21-32); Chloride 99.0 mmol/L (98-107); Creatinine Clr Calc Pharmacy 77.5 ml/min; Globulin 3.8 gm/dl (2.5-4.0); Glucose 156.0 mg/dl (70-99(Fasting)); Lipase 29.0 U/L (11-82); Potassium 4.0 mmol/L (3.5-5.1); Sodium 139.0 mmol/L (136-145); Total Protein 8.5 gm/dl (6.0-8.3)
--- NOTE | 2024-12-19 07:35 | XRay Report ---
EXAM: XR chest 1V portable CLINICAL HISTORY: Chest pain, nonspecific TECHNIQUE: An X-ray image of the chest is obtained in AP projection. COMPARISON: None. FINDINGS: The lungs are clear and well-expanded with no pulmonary infiltrate or pleural effusion. The cardiomediastinal silhouette is within normal limits. No acute osseous abnormality. Raised left dome of diaphragm. IMPRESSION: 1. No acute cardiopulmonary disease. Electronically signed by Quinton Willson 12-19-2024 07:35 AM
--- NOTE | 2024-12-19 07:38 | XRay Report ---
EXAM: XR KUB/Abdomen 1 view CLINICAL HISTORY: vomiting TECHNIQUE: X-ray images of the abdomen were obtained in supine and upright positions. 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 No evidence of bowel obstruction or distention. Soft Tissues: Soft tissues of the abdomen appear normal without evidence of masses or calcifications. Liver, spleen, and kidneys are of normal size and position. IMPRESSION: Normal abdominal X-ray. No acute abnormalities identified. No other new interval abnormality since prior study. Electronically signed by Quinton Willson 12-19-2024 07:37 AM
[2024-12-19 07:54] LABS: Influenza A virus by PCR Negative (Neg); Influenza B virus by PCR Negative (Neg); SARS CoV2 RNA(COVID-19) Ceph NEGATIVE (Negative)
[2024-12-19] MEDS: SODIUM CHLORIDE 0.9% 1,000 ML IV ONE (08:11)
[2024-12-19] MEDS: OPTIRAY 320 125ml IV ONE (10:17)
[2024-12-19] MEDS: PROMETHAZINE 12.5 MG/50.5 ML BAG IV STA (10:34)
--- NOTE | 2024-12-19 10:37 | CT Scan Report ---
CT SCAN OF THE BRAIN WITHOUT IV CONTRAST CLINICAL HISTORY: Nausea and vomiting. COMPARISON STUDY: None. TECHNIQUE: Unenhanced axial CT scan of the brain was performed from the vertex to the skull base. A dose lowering technique was utilized adhering to the principles of ALARA. CT DOSE: 3298.72 mGy.cm FINDINGS: Brain parenchyma: No acute intracranial hemorrhage, midline shift or mass effect is present. Pichardo-whi te matter differentiation is preserved. There are no extra-axial fluid collections. There are no find ings to suggest acute dural sinus thrombosis or acute territorial infarct. Ventricles, sulci, cisterns: There is no hydrocephalus. The basal cisterns are patent. Calvarium: Unremarkable. Sinuses and mastoids: There are trace secretions within the right sphenoid sinus. The mastoid air reynold ls are well pneumatized. Orbits: The bony orbits are grossly intact. IMPRESSION: No acute intracranial findings. ACT 112: Negative or not required by law. Electronically signed by: Ramses Metcalf M.D. 12/19/2024 10:35 AM
--- NOTE | 2024-12-19 11:01 | CT Scan Report ---
CT angio chest PE protocol HISTORY: 44 years-old Male with PE. Acute shortness of breath TECHNIQUE: Multiple CTA images of the chest were obtained after the intravenous administration of 119 ml Optiray. Coronal and sagittal MIPS were obtained from the axial data set and were submitted for review. All measurements were obtained according to NASCET criteria. A dose lowering technique was u tilized adhering to the principles of ALARA. COMPARISON: CT abdomen and pelvis of same day, chest CT 05/19/2013 FINDINGS: CTA: The heart is normal in size. No pericardial effusion. No thoracic aortic aneurysm or dissection. Ther e is patency of the image great vessels. No pulmonary emboli are identified. CT CHEST: No dominant thyroid nodule is seen. No pathologically adenopathy by CT size criteria. Mild subsegment al left basilar atelectasis. There is no pneumothorax, pleural effusion or focal airspace consolidati on. Mid to distal esophageal wall thickening with adjacent inflammatory stranding and a small hiatal porter ia. CT abdomen and pelvis dictated separately. Mild gynecomastia. The osseous structures appear inta ct. IMPRESSION: 1. No pulmonary emboli. 2. Small hiatal hernia with moderate mid to distal esophageal wall thickening suspicious for esophagi tis. Correlation with endoscopy recommended in order to exclude a mucosal lesion. ACT 112: Negative or not required by law. The above report was generated using voice recognition software. It may contain grammatical, syntax o r spelling errors. Electronically signed by: Iraj Castillo M.D. 12/19/2024 11:00 AM
--- NOTE | 2024-12-19 11:14 | CT Scan Report ---
CT SCAN OF THE ABDOMEN AND PELVIS WITH IV CONTRAST CLINICAL HISTORY: Nausea and vomiting. COMPARISON STUDY: CT of the abdomen and pelvis April 22, 2021. TECHNIQUE: Following the IV administration of 119 cc of Optiray 320, CT scan of the abdomen and pelv is is performed from the lung bases to the proximal femora. Images are reviewed in the axial, sagitta l, and coronal planes. IV contrast was administered without complication. A dose lowering technique w as utilized adhering to the principles of ALARA. FINDINGS: Moderate circumferential wall thickening of the distal esophagus is partially imaged. There is mucosal hyperemia and trace paraesophageal stranding and fluid. The remainder of the esophagus is depicted on the chest CT which will be reported separately. No pneumatosis, free air or portal venou s gas is present. Liver, spleen, adrenal glands and pancreas are unremarkable. Incidental note is aga in made of a horseshoe kidney. There is no hydronephrosis. There is no biliary or pancreatic ductal d ilatation. There is circumferential wall thickening of the gastric antrum which appears edematous. Th ere is mild adjacent stranding is no extraluminal gas. There are no fluid collections. There is no ev idence for a bowel obstruction. There is colonic diverticulosis. Prostate is enlarged, measuring 5.2 cm in transverse diameter. There is mild rectal wall thickening. Prominent perirectal fat is again no shawn. The extent of colorectal wall thickening has decreased since CT of April 22, 2021. IMPRESSION: 1. Distal esophageal wall thickening with trace adjacent fluid and stranding. This favors esophagitis . Edematous, thickened gastric antrum with mild adjacent inflammation. This favors gastritis/peptic u lcer disease. No extraluminal gas. No fluid collections. Correlation with endoscopy is recommended. 2. Rectal wall thickening, similar to CT of February 19, 2022. This is likely chronic. Interval decrea se in extent of colorectal wall thickening since prior exam. The findings raise the possibility of a chronic inflammatory process such as ulcerative colitis. ACT 112: Negative or not required by law. Electronically signed by: Ramses Metcalf M.D. 12/19/2024 11:12 AM
[2024-12-19] MEDS: PANTOprazole 40 MG/10 ML SYR IV ONE (11:39)
--- NOTE | 2024-12-19 12:29 | History & Physical Report ---
Date of Service December 19, 2024 Assessment & Plan (1) Esophagitis: (2) Acute dehydration: (3) Nausea & vomiting: (4) Hypertension, benign: Plan 44 year old male with HIV presents to the ER with intractable nausea and vomiting for 2 days. Esophagitis Unclear what caused exacerbation but likely has longstanding uncontrolled heartburn (severe esophagitis on EGD in 2021, previously on rabeprazole) with some food that pushed him over the edge. Symptoms started yesterday and troponin x2 negative therefore do not suspect cardiac etiology NPO except ice chips and sips, IV fluids, can advance at dinner to clears if patient is improving Start pantoprazole 40mg IV BID, continue ondansetron as needed for nausea Consult gastroenterology to consider EGD given CT findings (distal esophageal wall thickening with trace adjacent fluid stranding and rectal wall thickening) and severity of symptoms Rectal wall thickening Appears to be chronic, recommend colonoscopy as outpatient - inadequate prep on last colonoscopy in 2021 but diagnosed with Shigella and E. coli at that time and diarrhea improved HIV Unknown CD4 count but patient recollection is over 400 measured in the last few months Continue Biktarvy Hypertension Continue olmesartan VTE Prophylaxis - Low risk Disposition - observation to med/surg Admission and Anticipated Discharge Date Admission Date: December 19, 2024 History of Present Illness Chief Complaint: Intractable nausea and vomiting Primary Care Provider: Marie Abraham MD Myke Grossman is a 44 year old male who presents to the ER with vomiting, chest pressure that started yesterday morning. Intermittent chills. He reports having chronic heartburn for which he takes tums a few times a week. Takes Advil couple of times a month for headaches - no change recently. No known exacerbating foods. No alcohol. He is a non smoker. Allergies Allergy/AdvReac Type Severity Reaction Status Date / Time lisinopril Allergy Intermediate Rash, "big Verified 11/07/24 13:38 acne" Home Medications Medication Instructions Recorded Confirmed Type multivitamin 1 tab PO QAM 05/08/18 11/07/24 History bictegravir 50 mg-emtricitabine 1 tab PO PM 12/14/22 12/19/24 History 200 mg-tenofovir alafenam 25 mg tablet (Biktarvy) olmesartan 20 mg tablet 20 mg PO DAILY #90 tabs 05/02/24 11/07/24 Rx cholecalciferol (vitamin D3) 50 50 mcg PO DAILY #90 caps 06/18/24 11/07/24 Rx mcg (2,000 unit) capsule mecobalamin (vitamin B12) 1,000 1,000 mcg PO DAILY #90 tabs 06/18/24 11/07/24 Rx mcg chewable tablet atorvastatin 20 mg tablet 20 mg PO QPM #30 tabs 11/07/24 12/19/24 Rx mupirocin 2 % topical ointment 1 applic topical TID #22 grams 11/07/24 11/07/24 Rx ondansetron HCl 4 mg tablet 4 mg PO Q8H PRN nausea and 12/19/24 Rx vomiting #20 tabs Past Med/Surg History Problem List (Updated 12/19/24 @ 12:04 by Tera Leigh DO) Gastritis (Acute) Esophagitis (Acute) Acute dehydration (Acute) DARLING (acute kidney injury) (Acute) Nausea & vomiting (Acute) Tiredness Vitamin B12 deficiency Hypertriglyceridemia Hyperglycemia Vitamin D deficiency Nephrolithiasis (Acute) Low testosterone (Acute) Low back pain (Acute) Inhibited sexual excitement (Acute) Hypertension, benign (Chronic) Hyperparathyroidism (Acute) Hyperlipidemia (Acute) Hydronephrosis of left kidney (Acute) Horseshoe kidney (Acute) Chronic kidney disease, stage III (moderate) (Acute) Acne (Acute) Human immunodeficiency virus (HIV) disease (Chronic) Lower extremity edema (Acute) Encounter for health maintenance examination GERD (gastroesophageal reflux disease) Chronic diarrhea Obesity Medical History HIV infection, symptomatic CKD (chronic kidney disease) Kidney disease Secondary hyperparathyroidism GERD with esophagitis Infectious colitis Symptoms consistent with irritable bowel syndrome Diarrhea Kidney stones hx Acid reflux High blood pressure Methicillin resistant Staphylococcus aureus infection hx of Vitamin D insufficiency hx of History of MRSA infection HIV (human immunodeficiency virus infection) Surgical History History of lithotripsy History of tooth extraction 2 teeth removed History of umbilical hernia repair History of inguinal hernia repair Hx of wisdom tooth extraction Family History Brother Diabetes Coronary heart disease Anxiety disorder Father Coronary heart disease Diabetes Kidney disease Melanoma Mother Diabetes Migraines Family/Other Breast cancer Denies family history of Ovarian cancer Prostate cancer Crohn's disease Myocardial infarction Colorectal cancer Ulcerative colitis Social History Smoking Status: Never smoker Second Hand Exposure: No; Do You Dip or Chew Tobacco: No; Hx Alcohol Use: No Hx Substance Use: Yes Substance Use Type Other:: marijuana occasionally Preferred Language: Upper Sorbian Communication Ability: Effective Visual Impairment: No Limitations Hearing Ability: Normal 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: No Beliefs That Will Affect Care: None marital status: Single Current Living Situation: Family Current Living Situation Comment: PARENTS current occupational status: student Feels Safe at Home: Yes Childhood Exposure to Second-Hand Smoke: Yes (brother) Dental Care, Regularly: Yes Physical Activity Frequency: Does not Exercise Seatbelt Use: always Sunscreen Use: No Assistive Devices: Glasses Review of Systems Review of Systems: All systems reviewed & are unremarkable except as noted in HPI & below Physical Exam Constitutional: WD/WN, vitals as above ENMT: external ear and nose normal, oropharynx normal Respiratory: normal respiratory effort, lungs clear to auscultation Cardiovascular: RRR, no murmur, no edema Gastrointestinal (Abdomen): normal bowel sounds, soft, nontender, no hepatosplenomegaly Skin: no rashes, warm and dry Psychiatric: A+Ox3, euthymic affect Results & Data Results & Data Vital Signs (Past 12 Hours) Vital Signs Temp Pulse Pulse Resp BP BP Pulse Ox 12/19/24 10:44 66 12/19/24 10:33 76 16 178/121 H 97 12/19/24 08:00 73 23 172/115 H 94 12/19/24 06:33 71 13 126/68 97 12/19/24 06:12 80 18 164/114 H 93 12/19/24 05:45 81 12/19/24 05:30 36.4 C L 85 18 167/119 H 95 O2 Del Method 12/19/24 10:44 12/19/24 10:33 Room Air 12/19/24 08:00 Room Air 12/19/24 06:33 Room Air 12/19/24 06:12 Room Air 12/19/24 05:45 12/19/24 05:30 Room Air Laboratory Results Abnormal lab results 12/19/24 Range/Units 05:42 Hgb 18.6 H (14.0-18.0) g/dl Hct 54.2 H (42.0-52.0) % MPV 8.9 L (9.4-12.4) fL Neut # (Auto) 8.10 H (1.40-6.50) K/uL [place] # (Auto) 0.70 H (0.11-0.59) K/uL Carbon Dioxide 34 H (21-32) mmol/L Creatinine 1.47 H (0.6-1.4) mg/dl Glucose 156 H (70-99(Fasting)) mg/dl Total Protein 8.5 H (6.0-8.3) gm/dl Urine Protein 1+ H (Negative) Urine Ketones Trace H (Negative) Diagnostic Findings CT SCAN OF THE BRAIN WITHOUT IV CONTRAST CLINICAL HISTORY: Nausea and vomiting. COMPARISON STUDY: None. TECHNIQUE: Unenhanced axial CT scan of the brain was performed from the vertex to the skull base. A dose lowering technique was utilized adhering to the principles of ALARA. CT DOSE: 3298.72 mGy.cm FINDINGS: Brain parenchyma: No acute intracranial hemorrhage, midline shift or mass effect is present. Pichardo-white matter differentiation is preserved. There are no extra-axial fluid collections. There are no findings to suggest acute dural sinus thrombosis or acute territorial infarct. Ventricles, sulci, cisterns: There is no hydrocephalus. The basal cisterns are patent. Calvarium: Unremarkable. Sinuses and mastoids: There are trace secretions within the right sphenoid sinus. The mastoid air cells are well pneumatized. Orbits: The bony orbits are grossly intact. IMPRESSION: No acute intracranial findings. CT angio chest PE protocol HISTORY: 44 years-old Male with PE. Acute shortness of breath TECHNIQUE: Multiple CTA images of the chest were obtained after the intravenous administration of 119 ml Optiray. Coronal and sagittal MIPS were obtained from the axial data set and were submitted for review. All measurements were obtained according to NASCET criteria. A dose lowering technique was utilized adhering to the principles of ALARA. COMPARISON: CT abdomen and pelvis of same day, chest CT 05/19/2013 FINDINGS: CTA: The heart is normal in size. No pericardial effusion. No thoracic aortic aneurysm or dissection. There is patency of the image great vessels. No pulmonary emboli are identified. CT CHEST: No dominant thyroid nodule is seen. No pathologically adenopathy by CT size criteria. Mild subsegmental left basilar atelectasis. There is no pneumothorax, pleural effusion or focal airspace consolidation. Mid to distal esophageal wall thickening with adjacent inflammatory stranding and a small hiatal hernia. CT abdomen and pelvis dictated separately. Mild gynecomastia. The osseous structures appear intact. IMPRESSION: 1. No pulmonary emboli. 2. Small hiatal hernia with moderate mid to distal esophageal wall thickening suspicious for esophagitis. Correlation with endoscopy recommended in order to exclude a mucosal lesion. CT SCAN OF THE ABDOMEN AND PELVIS WITH IV CONTRAST CLINICAL HISTORY: Nausea and vomiting. COMPARISON STUDY: CT of the abdomen and pelvis April 22, 2021. TECHNIQUE: Following the IV administration of 119 cc of Optiray 320, CT scan of the abdomen and pelvis is performed from the lung bases to the proximal femora. Images are reviewed in the axial, sagittal, and coronal planes. IV contrast was administered without complication. A dose lowering technique was utilized adhering to the principles of ALARA. FINDINGS: Moderate circumferential wall thickening of the distal esophagus is partially imaged. There is mucosal hyperemia and trace paraesophageal stranding and fluid. The remainder of the esophagus is depicted on the chest CT which will be reported separately. No pneumatosis, free air or portal venous gas is present. Liver, spleen, adrenal glands and pancreas are unremarkable. Incidental note is again made of a horseshoe kidney. There is no hydronephrosis. There is no biliary or pancreatic ductal dilatation. There is circumferential wall thickening of the gastric antrum which appears edematous. There is mild adjacent stranding is no extraluminal gas. There are no fluid collections. There is no evidence for a bowel obstruction. There is colonic diverticulosis. Prostate is enlarged, measuring 5.2 cm in transverse diameter. There is mild rectal wall thickening. Prominent perirectal fat is again noted. The extent of colorectal wall thickening has decreased since CT of April 22, 2021. IMPRESSION: 1. Distal esophageal wall thickening with trace adjacent fluid and stranding. This favors esophagitis. Edematous, thickened gastric antrum with mild adjacent inflammation. This favors gastritis/peptic ulcer disease. No extraluminal gas. No fluid collections. Correlation with endoscopy is recommended. 2. Rectal wall thickening, similar to CT of February 19, 2022. This is likely chronic. Interval decrease in extent of colorectal wall thickening since prior exam. The findings raise the possibility of a chronic inflammatory process such as ulcerative colitis. Medications Administered ER Medications Given: Normal saline 1000ml bolus x2 Ondansetron 4mg IV Ondansetron 4mg IV Phenergan 12.5mg IV Pantoprazole 40mg IV ECG Rate (beats per minute): 74 Rhythm: normal sinus Findings: + other (T wave flattening in lateral leads) Comparison ECG Date: from (October 10, 2019) Change: the following changes noted (T wave flattening now present) Code Status & VTE Plan Code Status Full VTE Prophylaxis Plan VTE Prophylaxis will be ordered: No PG Care Time/CCT Total # of Minutes Spent Total Time Spent with Patient: Total time spent is greater than 50% in coordination of care (as documented) at patient's floor/unit and/or counseling patient: Coding Level of Care Code 30654 INT INP/OBS CARE 375MIN Diagnoses Esophagitis K20.90 Acute dehydration E86.0 Nausea & vomiting R11.2 Hypertension, benign I10
[2024-12-19] MEDS: SODIUM CHLORIDE 0.9% 1,000 ML IV SCH (13:07)
[2024-12-19 13:12] LABS: Amphetamines+Metham, Urine Pos (Neg); MDMA (Ecstacy), Urine Neg (Neg); Marijuana, Urine Neg (Neg)
[2024-12-19] MEDS ORDERED: ONDANSETRON INJ 2 MG/ML 2 ML VIAL IV PRN (15:28)
[2024-12-19] MEDS ORDERED: ALUMINUM/MAGNESIUM SUSP 30 ML UDC PO PRN (15:28)
--- NOTE | 2024-12-19 18:24 | Electrocardiogram Report ---
Test Reason : Blood Pressure : */* mmHG Vent. Rate : 74 BPM Atrial Rate : 74 BPM P-R Int : 156 ms QRS Dur : 104 ms QT Int : 412 ms P-R-T Axes : 18 34 -2 degrees QTcB Int : 457 ms Normal sinus rhythm Normal ECG When compared with ECG of 10-Oct-2019 11:17, Nonspecific T wave abnormality now evident in Lateral leads Confirmed by Myke Barba ([id number]) on 12/19/2024 6:24:33 PM Referred By: REFERRED SELF Confirmed By: Myke Barba
[2024-12-19] MEDS ORDERED: ACETAMINOPHEN 325 MG TAB PO PRN (20:48)
[2024-12-19] MEDS: PANTOprazole 40 MG/10 ML SYR IV SCH (20:51)
[2024-12-19] MEDS ORDERED: GLUCOSE 10 TAB/TUBE PO PRN (22:45)
[2024-12-19] MEDS ORDERED: GLUCAGON FOR INJ 1 MG VIAL SQ PRN (22:45)
[2024-12-19] MEDS ORDERED: CARBOHYDRATES FOR HYPOGLYCEMIA PO PRN (22:45)
[2024-12-19] MEDS ORDERED: DEXTROSE 50% 50 ML SYRINGE IV PRN (22:45)
[2024-12-19] MEDS ORDERED: GLUCOSE 40% GEL 15 GM TUBE PO PRN (22:45)
[2024-12-20 06:29] LABS: Hematocrit (blood only) 46.1 % (42.0-52.0); Hemoglobin 15.7 g/dl (14.0-18.0); Immature Granulocytes # (auto) 0.05 K/uL (0.01-0.20); Immature Granulocytes % (auto) 0.5 %; Mean Corpuscular Hemoglobin 30.9 pg (25.0-34.0); Mean Corpuscular Volume 90.7 fL (80.0-100.0); Platelet Count 208 K/uL (130-400); RDW Standard Deviation 41.2 fL (36.4-46.3); Red Blood Count 5.08 M/uL (4.70-6.10); White Blood Count 10.42 K/ul (4.8-10.8)
[2024-12-20 06:45] LABS: Anion Gap 4.0 (3-11); Blood Urea Nitrogen 14.0 mg/dl (6-23); Calcium 8.1 mg/dl (8.6-10.3); Carbon Dioxide 27.0 mmol/L (21-32); Chloride 107.0 mmol/L (98-107); Creatinine Clr Calc Pharmacy 99.4 ml/min; Glucose 101.0 mg/dl (70-99(Fasting)); Potassium 3.8 mmol/L (3.5-5.1); Sodium 138.0 mmol/L (136-145)
[2024-12-20] MEDS: SODIUM CHLORIDE 0.9% 1,000 ML IV SCH (07:54)
--- NOTE | 2024-12-20 10:31 | Gastrointestinal Consultation ---
Date of Consultation December 20, 2024 Assessment & Plan (1) Abnormal CT scan, esophagus: -Continue IV PPI gtt at this time -Keep NPO for EGD today (2) Abnormal CT scan, stomach: -Continue IV PPI gtt at this time -Keep NPO for EGD today (3) Abnormal CT scan, colon: No current symptoms corresponding with the rectal wall thickening on CT, but he did have similar findings on colonoscopy in 2021. I have contacted my office staff to arrange for a colonoscopy as an outpatient and have discussed this with patient. Supervising Physician Co-Signing Physician Notes Agree with HONEY Peralta as above Patient independently seen and examined Still with Abdominal pain, but no further vomiting at present Abd: Soft, Tender, ND, +BS CT scan reviewed Scheduled for outpatient colonoscopy due to abnormal CT findings Proceed with EGD today Further recommendations to follow History of Present Illness Reason for Consultation: Esophagitis Attending Physician: Miguel Angel Pritchett MD History of Present Illness Patient is a 44 yo male with PMH of HIV who presented to the hospital due to n/v. He notes that he has a significant history of GERD. He has not been on maintenance meds for GERD recently. He does take NSAIDs. He denies melena, hematemesis, hematochezia, or chest pain. He presented to the ED due to his symptoms. A CT scan indicated findings of esophagitis and concern for gastritis vs PUD. The patient has not vomited for nearly 24 hours. He notes his nausea has improved since admission. He last had an EGD in 2021 that indicated severe esophagitis, a moderate size hiatal hernia, and gastritis. At that time, he was having diarrhea as well and tested positive for Shigella and E coli at that time. He did have proctitis on his colonoscopy that was felt to be infectious. His CT shows rectal wall thickening on 12/19/24. He is not currently having diarrhea or rectal bleeding. H/H 15.7/46.1. Allergies Allergy/AdvReac Type Severity Reaction Status Date / Time lisinopril Allergy Intermediate Rash, "big Verified 12/19/24 15:09 acne" Home Medications Medication Instructions Recorded Confirmed Type multivitamin 1 tab PO QAM 05/08/18 12/19/24 History bictegravir 50 mg-emtricitabine 1 tab PO PM 09/26/23 10/01/25 History 200 mg-tenofovir alafenam 25 mg tablet (Biktarvy) olmesartan 20 mg tablet 20 mg PO DAILY #90 tabs 05/02/24 12/19/24 Rx cholecalciferol (vitamin D3) 50 50 mcg PO DAILY #90 caps 06/18/24 12/19/24 Rx mcg (2,000 unit) capsule mecobalamin (vitamin B12) 1,000 1,000 mcg PO DAILY #90 tabs 06/18/24 12/19/24 Rx mcg chewable tablet atorvastatin 20 mg tablet 20 mg PO QPM #30 tabs 11/07/24 12/19/24 Rx mupirocin 2 % topical ointment 1 applic topical TID PRN SKIN 12/19/24 12/19/24 History IRRITATIONS ondansetron HCl 4 mg tablet 4 mg PO Q8H PRN nausea and 12/19/24 12/19/24 Rx vomiting #20 tabs Patient History Medical History HIV infection, symptomatic CKD (chronic kidney disease) Kidney disease Secondary hyperparathyroidism GERD with esophagitis Infectious colitis Symptoms consistent with irritable bowel syndrome Diarrhea Kidney stones hx Acid reflux High blood pressure Methicillin resistant Staphylococcus aureus infection hx of Vitamin D insufficiency hx of History of MRSA infection HIV (human immunodeficiency virus infection) Surgical History History of lithotripsy History of tooth extraction 2 teeth removed History of umbilical hernia repair History of inguinal hernia repair Hx of wisdom tooth extraction Family History Brother Diabetes Coronary heart disease Anxiety disorder Father Coronary heart disease Diabetes Kidney disease Melanoma Mother Diabetes Migraines Family/Other Breast cancer Denies family history of Ovarian cancer Prostate cancer Crohn's disease Myocardial infarction Colorectal cancer Ulcerative colitis Social History Smoking Status: Never smoker Second Hand Exposure: No; Do You Dip or Chew Tobacco: No; Tobacco Cessation Education Requested by Patient: No Hx Alcohol Use: No Hx Substance Use: No Preferred Language: Occitan Communication Ability: Effective Visual Impairment: No Limitations Hearing Ability: Normal Belt Tender Required: No Beliefs That Will Affect Care: None marital status: Single Current Living Situation: Family Current Living Situation Comment: PARENTS current occupational status: student Other Information That Helps Us Care for You: No Feels Safe at Home: Yes Safety Concerns: Feels Safe At This Time Childhood Exposure to Second-Hand Smoke: Yes (brother) Dental Care, Regularly: Yes Physical Activity Frequency: Does not Exercise Seatbelt Use: always Sunscreen Use: No Assistive Devices: Crutches Review of Systems Constitutional: no fever and no chills Respiratory: no cough and no dyspnea Cardiovascular: no chest pain Gastrointestinal: + heartburn, + nausea and + vomiting (re solved); no abdominal pain, no coffee ground emesis, no hematemesis, no diarrhea/loose stools, no blood in stools and no melena Physical Exam Constitutional: well developed Gastrointestinal (Abdomen): normal bowel sounds, soft, nontender, no hepat osplenomegaly Psychiatric: Orientation: alert and oriented x 3 Results & Data Vital Signs (Past 12 Hours) Vital Signs Temp Pulse Resp BP Pulse Ox O2 Del Method 12/20/24 07:27 36.7 C 77 16 129/85 94 Room Air 12/19/24 23:20 37.5 C 74 18 158/100 H 97 Room Air PG Care Time/CCT Total # of Minutes Spent Total Time Spent with Patient: Total time spent is greater than 50% in coordination of care (as documented) at patient's floor/unit and/or counseling patient: Coding Level of Care Code 50199 IN/OBS CONSULT LVL 4,60M Diagnoses Abnormal CT scan, esophagus R93.[address] scan, stomach R93.[address] scan, colon R93.3
--- NOTE | 2024-12-20 11:50 | Anesthesiology Consultation ---
Date of Service December 20, 2024 Assessment & Plan Chart Review Chart Review: Acceptable Risk for Surgery and Patient NOT seen in Pre Admission Testing Consults Requested none History Surgery Operation Date: 12/20/24 17:30 Proposed Procedures p Esophagogastroduodenoscopy Dr Bhakta - Alvino Riley Case, DO Height/Weight Height: 5 ft 6 in Weight: 117.934 kg Allergies Allergy/AdvReac Type Severity Reaction Status Date / Time lisinopril Allergy Intermediate Rash, "big Verified 12/19/24 15:09 acne" Medications Home Medications Medication Instructions Recorded Confirmed Last Taken multivitamin 1 tab PO QAM 05/08/18 12/19/24 12/17/24 bictegravir 50 mg-emtricitabine 1 tab PO PM 12/14/22 12/19/24 12/17/24 200 mg-tenofovir alafenam 25 mg tablet (Biktarvy) olmesartan 20 mg tablet 20 mg PO DAILY #90 tabs 05/02/24 12/19/24 12/17/24 cholecalciferol (vitamin D3) 50 50 mcg PO DAILY #90 caps 06/18/24 12/19/24 12/17/24 mcg (2,000 unit) capsule mecobalamin (vitamin B12) 1,000 1,000 mcg PO DAILY #90 tabs 06/18/24 12/19/24 12/17/24 mcg chewable tablet atorvastatin 20 mg tablet 20 mg PO QPM #30 tabs 11/07/24 12/19/24 12/17/24 mupirocin 2 % topical ointment 1 applic topical TID PRN SKIN 12/19/24 12/19/24 Unknown IRRITATIONS ondansetron HCl 4 mg tablet 4 mg PO Q8H PRN nausea and 12/19/24 12/19/24 12/17/24 vomiting #20 tabs Active Medications Generic Name Dose Route Start Last Admin Trade Name Freq PRN Reason Stop Dose Admin Pantoprazole Sodium 40 mg in 10 mls @ 5 mls/min 12/19/24 21:00 12/20/24 10:03 Protonix IV 01/18/25 20:59 5 mls/min BID BERNA Administration Sodium Chloride 1,000 mls @ 80 mls/hr 12/20/24 07:45 12/20/24 07:54 Nss IV 12/20/24 20:14 80 mls/hr .[id number] BERNA Administration Miscellaneous 1 each 12/20/24 00:00 12/20/24 07:54 Order Awaiting Action - Dudley N/A 01/19/25 00:00 Not Given QS BERNA Past Medical History Medical History HIV infection, symptomatic CKD (chronic kidney disease) Kidney disease Secondary hyperparathyroidism GERD with esophagitis Infectious colitis Symptoms consistent with irritable bowel syndrome Diarrhea Kidney stones hx Acid reflux High blood pressure Methicillin resistant Staphylococcus aureus infection hx of Vitamin D insufficiency hx of History of MRSA infection HIV (human immunodeficiency virus infection) Past Family History Family History Brother Diabetes Coronary heart disease Anxiety disorder Father Coronary heart disease Diabetes Kidney disease Melanoma Mother Diabetes Migraines Family/Other Breast cancer Denies family history of Ovarian cancer Prostate cancer Crohn's disease Myocardial infarction Colorectal cancer Ulcerative colitis Past Surgical History Surgical History History of lithotripsy History of tooth extraction 2 teeth removed History of umbilical hernia repair History of inguinal hernia repair Hx of wisdom tooth extraction Social History Smoking Status: Never smoker Do You Dip or Chew Tobacco: No Hx Alcohol Use: No Hx Substance Use: No substance use type: marijuana Substance Use Type Other:: marijuana occasionally Last Used Substance Other:: 1 Month Physical Exam Vital Signs Last Vital Signs Temp 36.7 C 12/20/24 07:27 Pulse 77 12/20/24 07:27 Resp 16 12/20/24 07:27 BP 129/85 12/20/24 07:27 Pulse Ox 94 12/20/24 07:27 O2 Del Method Room Air 12/20/24 07:45 Testing Laboratory Results 12/20/24 05:54 12/20/24 05:54 Urine Color Dark Yellow 12/19/24 05:42 Urine Appearance Clear (Clear) 12/19/24 05:42 Urine pH 6.0 (4.5-7.5) 12/19/24 05:42 Ur Specific [place] 1.026 (1.000-1.030) 12/19/24 05:42 Urine Protein 1+ (Negative) H 12/19/24 05:42 Urine Glucose (UA) Negative (Negative) 12/19/24 05:42 Urine Ketones Trace (Negative) H 12/19/24 05:42 Urine Nitrite Negative (Negative) 12/19/24 05:42 Ur Leukocyte Esterase Negative (Negative) 12/19/24 05:42 Urine WBC (Auto) 0-5 /hpf (0-5) 12/19/24 05:42 Urine RBC (Auto) 0-2 /hpf (0-2) 12/19/24 05:42 U Hyaline Cast (Auto) 0-2 /lpf (0-2) 12/19/24 05:42 U Epithel Cells (Auto) 0-2 /hpf (0-2) 12/19/24 05:42 Urine Bacteria (Auto) None Seen (None Seen) 12/19/24 05:42
--- NOTE | 2024-12-20 15:48 | GI REPORT ---
[facility] Patient: JUAN DAVID CA : 1980 Sex at : Male Age: 44 Years Procedure: Upper GI endoscopy Date: 12/20/2024 Attending Physician: DO Pawel Tucker MD: Miguel Angel Pritchett MD Indications: - Epigastric abdominal pain Medications: - Monitored Anesthesia Care Complications: - No immediate complications. Estimated Blood Loss: - Estimated blood loss: None. Procedure: - Prior to the procedure, a History and Physical was performed, and patient medications and allergies were reviewed. The patient's tolerance of previous anesthesia was also reviewed. The risks and benefits of the procedure and the sedation options and risks were discussed with the patient. All questions were answered, and informed consent was obtained. Prior Anticoagulants: The patient has taken no anticoagulant or antiplatelet agents. ASA Grade Assessment: III - A patient with severe systemic disease. After reviewing the risks and benefits, the patient was deemed in satisfactory condition to undergo the procedure. - The egd scope was introduced through the mouth and advanced to the third part of the duodenum. - The upper GI endoscopy was accomplished without difficulty. - The patient tolerated the procedure well. Findings: - LA Grade D (one or more mucosal breaks involving at least 75% of esophageal circumference) esophagitis with no bleeding was found in the lower third of the esophagus. - A medium-sized hiatal hernia was present. - Diffuse severe inflammation characterized by erosions and Ulcerations was found in the entire examined stomach. Biopsies were taken with a cold forceps for histology. - The examined duodenum was normal. Impression: - LA Grade D reflux esophagitis with no bleeding. - Medium-sized hiatal hernia. - Gastritis, characterized by erosions. Biopsied. - Normal examined duodenum. Recommendation: - [facility]. - Resume previous diet. - Continue present medications. - Await pathology results. - Return to primary care physician as previously scheduled. - Patient has a contact number available for emergencies. The signs and symptoms of potential delayed complications were discussed with the patient. Return to normal activities tomorrow. Written discharge instructions were provided to the patient. Procedure Code(s): - 10101, Esophagogastroduodenoscopy, flexible, transoral; with biopsy, single or multiple Diagnosis Code(s): - R10.13, Epigastric pain - K21.00, Gastro-esophageal reflux disease with esophagitis, without bleeding - K44.9, Diaphragmatic hernia without obstruction or gangrene - K29.70, Gastritis, unspecified, without bleeding CPT(R) - 2023 copyright [employer]. All Rights Reserved. The CPT codes, CCI edits and ICD codes generated are intended as suggestions and were generated based on input data. These codes are preliminary and upon bar porter review may be revised to meet current compliance and payer requirements. The provider is responsible for the final determination of appropriate codes, and modifiers. Dr. Alvino Bhakta, This document has been electronically signed. Note Initiated:12/20/2024 Note Completed:12/20/2024 3:[address] Alvino Bhakta, This document has been electronically signed. Note Amended:12/20/2024 3:58 PM \\[email or web address]\[id number]
[2024-12-20 16:29] VITALS: BP 128/81; PULSE 65; RESP 17; TEMP 98.8; O2SAT 99
[2024-12-20] MEDS: LIDOCAINE 2% 2 ML VIAL/AMP(20MG/ML) INFIL ONE (16:29)
[2024-12-20] MEDS: PROPOFOL IV EMULSION 10 MG/ML 20 ML VIAL IV ONE (16:30)
--- NOTE | 2024-12-20 17:03 | Discharge Summary ---
Discharge Summary Date of Service December 20, 2024 Principal Dx & Hospital Course #1 = Principal Diagnosis (1) Esophagitis: (2) Acute dehydration: (3) Nausea & vomiting: (4) Hypertension, benign: (5) Methamphetamine use: Plan Myke Gongora is a 44 year old male observed at [facility] from December 192024 due to intractable nausea and vomiting. He was diagnosed with esophagitis treated with intravenous pantoprazole and underwent EGD on December 20 which confirmed severe esophagitis, gastritis and medium sized hiatal hernia. He should continue pantoprazole 40mg PO BID indefinitely unless otherwise directed by gastroenterology. Urine toxicology was positive for amphetamine use and he admitted to non prescription methamphetamine use which he was advised likely contributing towards this. Advised to avoid GERD containing foods. 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 Notes For Next Care Provider Follow up pathology from EGD and urine toxicology Follow up gastroenterology for rectal wall thickening Medication Changes From Visit Pantoprazole for esophagitis/gastritis Ondansetron as needed for nausea Admission HPI Per Admitting Provider Myke Grossman is a 44 year old male who presents to the ER with vomiting, chest pressure that started yesterday morning. Intermittent chills. He reports having chronic heartburn for which he takes tums a few times a week. Takes Advil couple of times a month for headaches - no change recently. No known exacerbating foods. No alcohol. He is a non smoker. Discharge Exam Constitutional WD/WN, vitals as above Gastrointestinal (Abdomen) normal bowel sounds, soft, nontender, no hepatosplenomegaly Discharge Plan Discharge Items Patient Disposition: Home - Self-Care Reason For Visit: ESOPHAGITITS, INTRACTABLE VOMITING Discharge Diagnosis: Esophagitis / gastritis (inflamed esophagus and stomach) Condition on Discharge: Good Activity: Resume your previous activity Non-emergency contact: Primary Care Provider Call non-emergency contact if: you have any medication questions and your symptoms worsen Follow-up/Referrals: Alvino Bhakta DO [Physician] - (Severe esophagitis, rectal thickening) Marie Abraham MD [Primary Care Provider] - Diet: Regular Addtl Attending Provider Instructions: You were observed at [facility] from October 1 - 2, 2025 due to intractable nausea and vomiting. You were diagnosed with esophagitis (inflamed esophagus) and underwent EGD on December 20 which confirmed severe esophagitis, gastritis and medium sized hiatal hernia. You were treated with intravenous pantoprazole and should continue this indefinitely (you will need to obtain repeat prescriptions through your primary care provider or supervisor data processing). Recommend stopping methamphetamine as this causes esophagitis and gastritis. Please take a multivitamin while on this medication as it can lead to vitamin deficiencies. Pending Studies at Discharge: Yes (Pathology from esophagus) Stand-Alone Forms: My [facility], Smoking Cessation Medications and DC Order Prescriptions: New ondansetron HCl 4 mg tablet 4 mg PO Q8H PRN (Reason: nausea and vomiting) Qty: 20 0RF pantoprazole 40 mg tablet,delayed release (DR/EC) 40 mg PO BID Qty: 60 0RF Continued mecobalamin (vitamin B12) 1,000 mcg tablet,chewable 1,000 mcg PO DAILY Qty: 90 3RF cholecalciferol (vitamin D3) 50 mcg (2,000 unit) capsule 50 mcg PO DAILY Qty: 90 3RF Rx Instructions: with heaviest meal of the day olmesartan 20 mg tablet 20 mg PO DAILY Qty: 90 3RF atorvastatin 20 mg tablet 20 mg PO QPM Qty: 30 5RF multivitamin Tablet 1 tab PO QAM Rx Instructions: PER PT "HAVEN'T TAKE FOR A COUPLE DAYS". Biktarvy 50-200-25 mg tablet 1 tab PO PM mupirocin 2 % ointment 1 applic topical TID PRN (Reason: SKIN IRRITATIONS) Discharge Orders: Discharge Order (Routine); Ordered 12/20/24 Ordered By: Miguel Angel Izaguirre/Other Patient Handouts: Ondansetron Oral Tablet, Pantoprazole Delayed Release Oral Tablet, GERD Lifestyle Changes, ED GERD (Adult) Admission Data Admit Date/Time: 12/19/24 12:40 Attending Provider: Miguel Angel Pritchett Admit Provider: Miguel Angel Pritchett Primary Care Provider: Marie Abraham V. Other Providers: Miguel Angel Pritchett; Winston Ramirez Other Interventions: Discharge Summary Assessment (RN) Last Done: 12/20/24 18:18 Hospital Stay Data Consultations 12/19/24 11:58 ED Decision to Admit Stat 12/19/24 15:28 Consult Gastroenterology Routine Procedures Performed Operation Date: 12/20/24 17:30 Actual Procedures p EGD Biopsy Cytology - Alvino Riley Case, DO Diagnostic Imagining Performed 12/19/24 10:01 CT abd pelvis IV con only Stat CT angio chest PE protocol Stat CT head/brain wo con Stat Pending Results Patient Have Any Pending Studies at Discharge: Yes (Pathology from esophagus) Discharge Instructions Given to Patient (Per Discharging Provider) You were observed at [facility] from December 19 - 2024 due to intractable nausea and vomiting. You were diagnosed with esophagitis (inflamed esophagus) and underwent EGD on December 20 which confirmed severe esophagitis, gastritis and medium sized hiatal hernia. You were treated with intravenous pantoprazole and should continue this indefinitely (you will need to obtain repeat prescriptions through your primary care provider or supervisor data processing). Recommend stopping methamphetamine as this causes esophagitis and gastritis. Please take a multivitamin while on this medication as it can lead to vitamin deficiencies. Total Time Total Time Spent Total Time Spent (In Minutes): 50 Total Time Includes: Examination of the Patient, Discharge Planning, Medication Reconciliation and Communication With Other Providers Coding Level of Care Code 59495 INP/OBS DISCH >30 MIN Diagnoses Esophagitis K20.90 Acute dehydration E86.0 Nausea & vomiting R11.2 Hypertension, benign I10 Methamphetamine use F15.90
--- NOTE | 2024-12-20 19:25 | Anesthesiology Progress Note ---
Date of Service December 20, 2024 Anesthesia Post Procedure Vital Signs Vital Signs: Temp Pulse Resp BP Pulse Ox O2 Del Method 12/20/24 16:27 37.1 C 65 17 128/81 99 Room Air 12/20/24 16:18 69 20 138/98 94 Room Air 12/20/24 16:04 71 20 150/90 H 96 Room Air 12/20/24 15:49 82 20 172/103 H 93 Room Air 12/20/24 14:33 36.4 C L 58 L 20 141/88 H 98 Room Air 12/20/24 07:45 Room Air 12/20/24 07:27 36.7 C 77 16 129/85 94 Room Air 12/19/24 23:20 37.5 C 74 18 158/100 H 97 Room Air 12/19/24 20:30 Room Air Transfer of Care Handoff Completed per policy Notes Mental Status: alert / awake / arousable Patient Amnestic to Procedure: Yes Nausea / Vomiting: adequately controlled Pain: adequately controlled Airway Patency, RR, SpO2: stable & adequate BP & HR: stable & adequate Hydration State: stable & adequate Anesthetic Complications: no major complications apparent
[2024-12-25 12:47] LABS: Amphetamine Urine, Confirm 394 ng/mL (<250); Methamphetamine, Ur Confirm 1426 ng/mL (<250)
== END 2024-12-20 18:43 | disposition home or self-care (01) ==
LOC: EDINP 05:27 → ED 05:27 → 3E 17:56